=== PATIENT | female | born 1950 | race Caucasian/White ===

== ENCOUNTER 2017-11-05 02:46 | Emergency (ER) | payer BC, OTHER ==
[2017-11-05 02:54] VITALS: BP 119/74; PULSE 78; TEMP 98.6; BMI 24.1
--- NOTE | 2017-11-05 02:57 | PDOC ---
History of Present Illness - General Chief Complaint: Wheezing Stated Complaint: PAIN History Source: Patient - History of Present Illness Initial Comments: 11/05/17 03:55 67F with pmh of mild asthma presents with shortness of breath and difficulty breathing since last night. many people sick at work with the flu. Says he is allergic to her cats and the main reason why she has asthma. Usually on advair and albuterol inhaler. Was never hospitalized or intubated. Received duoneb here. 11/05/17 03:56 Past History - Past Medical History Allergies/Adverse Reactions: Allergies Allergy/AdvReac Type Severity Reaction Status Date / Time No Known Allergies Allergy Verified 11/05/17 02:51 - Suicide/Smoking/Psychosocial Hx Smoking History: Never smoked Have you smoked in the past 12 months: No Information on smoking cessation initiated: No Hx Alcohol Use: No Drug/Substance Use Hx: No Review of Systems - Review of Systems Able to Perform ROS?: Yes Constitutional: No: Symptoms Reported HEENTM: No: Symptoms Reported Respiratory: Yes: Shortness of Breath, Wheezing Cardiac (ROS): No: Symptoms Reported ABD/GI: No: Symptoms Reported : No: Symptoms Reported Musculoskeletal: No: Symptoms Reported Integumentary: No: Symptoms Reported Neurological: No: Symptoms reported All Other Systems: Reviewed and Negative *Physical Exam - Vital Signs Last Vital Signs Temp Pulse Resp BP Pulse Ox 98.6 F 78 22 119/74 96 11/05/17 02:51 11/05/17 02:51 11/05/17 02:51 11/05/17 02:51 11/05/17 02:51 - Physical Exam General Appearance: Yes: Nourished, Appropriately Dressed. No: Apparent Distress HEENT: positive: EOMI, INNA, Normal ENT Inspection Neck: negative: Tender Respiratory/Chest: positive: Lungs Clear, Normal Breath Sounds. negative: Chest Tender Cardiovascular: positive: Regular Rhythm, Regular Rate, S1, S2 Gastrointestinal/Abdominal: positive: Normal Bowel Sounds, Flat, Soft. negative : Tender Musculoskeletal: positive: Normal Inspection Extremity: positive: Normal Capillary Refill, Normal Inspection, Normal Range of Motion Integumentary: positive: Normal Color, Dry, Warm Neurologic: positive: Fully Oriented, Alert, Normal Mood/Affect Medical Decision Making - Medical Decision Making 11/05/17 03:59 1 duoneb given , tylenol and decadron Patient not wheezing anymore. Flu swab sent. 11/05/17 03:59 *DC/Admit/Observation/Transfer Diagnosis at time of Disposition: Asthma exacerbation - Discharge Dispostion Disposition: HOME Admit: No - Referrals - Patient Instructions Printed Discharge Instructions: The Connection Between Allergies and Asthma, DI for Asthma -- Adult - Post Discharge Activity
--- NOTE | 2017-11-05 03:21 | PDOC ---
Attending Attestation - Resident Resident Name: Pepe Velasco - ED Attending Attestation I have performed the following: I have examined & evaluated the patient, The case was reviewed & discussed with the resident, I agree w/resident's findings & plan - HPI HPI: 11/05/17 03:20 Pt comes with asthma exac; she is allergic to her cat. 11/05/17 03:32 She states also that she has cough nasal congestion and chills. Everyone in her office is ill. SHe works in an ortho clinic. - Physicial Exam PE: 11/05/17 03:20 Agree with resident exam 11/05/17 03:33 Pt has clear lungs after nebs on the ambulance. Pt feels warm to the touch, low grade temp. - Medical Decision Making 11/05/17 03:20 Rx with duoneb and prednisone. Home when stable.
[2017-11-05] MEDS ORDERED: DEXAMETHASONE LIQUID 0.5 MG/5 ML 240 ML BULK BOTTLE PO ONE (03:27)
[2017-11-05] MEDS ORDERED: DEXAMETHASONE SOD PHOSPHATE 10 MG/1 ML VIAL ONE (03:28)
[2017-11-05] MEDS ORDERED: ACETAMINOPHEN 325 MG TABLET (FP) PO ONE (03:34)
[2017-11-05] MEDS ORDERED: OSELTAMIVIR PHOSPHATE 75 MG CAPSULE PO ONE (04:04)
[2017-11-05] MEDS ORDERED: OSELTAMIVIR PHOSPHATE 75 MG CAPSULE ONE (04:07)
[2017-11-05] MEDS ORDERED: ACETAMINOPHEN 325 MG TABLET (FP) ONE (04:07)
== END 2017-11-05 04:12 | disposition home or self-care (01) ==
LOC: JER 02:46
DX: J45.901 Unspecified asthma with (acute) exacerbation (principal); Z91.09 Other allergy status, other than to drugs and biological substances
CPT/HCPCS: 87804; 99281-25